=== PATIENT | male | born 1965 | race Caucasian/White ===

== ENCOUNTER → 2023-12-08 | Outpatient (CLI) | payer BC, SELFPAY ==
--- NOTE | 2023-12-08 08:02 | EKG12_ITS ---
Test Reason : PRE OP Blood Pressure : / mmHG Vent. Rate : 047 BPM Atrial Rate : 047 BPM P-R Int : 152 ms QRS Dur : 106 ms QT Int : 456 ms P-R-T Axes : -11 -11 005 degrees QTc Int : 403 ms Sinus bradycardia Otherwise normal ECG Confirmed by KENNETH BRUCE, ALEXANDRA ([id number]), video effects editor SUNITA BEDOYA ([id number]) on 12/10/2023 6:41:00 AM Referred By: Atul Hernandez Confirmed By:MINAL COOPER MD
== END | disposition home or self-care (01) ==
PROVIDERS: PCP Nurse Practitioner Family; Referring Provider Urology; Visit Provider Urology
DX: Z01.810 Encounter for preprocedural cardiovascular examination (principal)
CPT/HCPCS: 93005